=== PATIENT | male | born 1945 | race Caucasian/White ===

== ENCOUNTER 2017-09-28 03:25 | Emergency (ER) | payer OTHER ==
[~2017-09-28] VITALS: Ht 182.9 cm; Wt 104.2 kg
[2017-09-28 03:39] VITALS: BP 179/91; PULSE 82; RESP 18; TEMP 98.4; O2SAT 100
[2017-09-28] MEDS ORDERED: LISI20TA PO (03:39)
[2017-09-28] MEDS ORDERED: LATA0.002 EACH EYE (03:39)
[2017-09-28] MEDS ORDERED: ASPI-516 CHEW (03:39)
[2017-09-28 03:40] VITALS: RESP 18; O2SAT 99
[2017-09-28] MEDS ORDERED: SODIUM CHLOR 0.9% 1000 ML INJ 1,000 ML IV SCH (03:45)
[2017-09-28] MEDS ORDERED: SODIUM CHLORIDE 0.9% FLUSH 10 ML FLUSH IV FLUSH PRN (03:45)
[2017-09-28] MEDS ORDERED: methylPREDNISolone SOD SUCC 125 MG/2 ML VIAL IV PUSH ONE (03:45)
[2017-09-28] MEDS ORDERED: diphenhydrAMINE HCL 50 MG/ML VIAL IVP ONE (03:45)
[2017-09-28] MEDS ORDERED: EPINEPHrine HCL (1:1000) 1 MG/ML VIAL IM ONE (03:45)
[2017-09-28] MEDS ORDERED: FAMOTIDINE 20 MG/2 ML VIAL IV PUSH ONE (03:45)
[2017-09-28 04:01] LABS: AUTOMATED NEUTROPHIL # 10.1 TH/MM3 (1.8-7.7); BASOPHIL # 0.2 TH/MM3 (0-0.2); BASOPHIL % 1.3 % (0.0-2.0); EOSINOPHIL # 0.3 TH/MM3 (0-0.4); EOSINOPHIL % 2.4 % (0.0-4.0); HEMATOCRIT 48.1 % (39.0-51.0); HEMOGLOBIN 16.4 GM/DL (13.0-17.0); LYMPH % 15.7 % (9.0-44.0); LYMPHOCYTE # 2.2 TH/MM3 (1.0-4.8); MEAN CELL VOLUME 96.7 FL (80.0-100.0); MEAN CORPUSCULAR HEMOGLOBIN 32.9 PG (27.0-34.0); MEAN PLATELET VOLUME 8.8 FL (7.0-11.0); MONO % 10.6 % (0.0-8.0); MONOCYTE # 1.5 TH/MM3 (0-0.9); PLATELET COUNT 157 TH/MM3 (150-450); RED BLOOD COUNT 4.97 MIL/MM3 (4.50-5.90); RED CELL DISTRIBUTION WIDTH 11.5 % (11.6-17.2); WHITE BLOOD COUNT 14.3 TH/MM3 (4.0-11.0)
[2017-09-28 04:09] LABS: BICARBONATE 26.6 MEQ/L (21.0-32.0); CALCIUM 9.3 MG/DL (8.5-10.1)
[2017-09-28 04:13] LABS: CREATININE 1.6 MG/DL (0.60-1.30)
[2017-09-28 04:35] VITALS: BP 166/66; PULSE 66; RESP 18; O2SAT 98
[2017-09-28] MEDS ORDERED: ZANT150T2 PO (04:40)
[2017-09-28] MEDS ORDERED: DIPH25TA2 PO (04:40)
[2017-09-28] MEDS ORDERED: PRED50 PO (04:40)
--- NOTE | 2017-09-28 04:42 | PD ---
HPI Chief Complaint: Allergic/Adverse Reaction Time Seen by Provider: 03:45 Travel History International Travel<30 days: No Contact w/Intl Traveler<30days: No Traveled to known affect area: No History of Present Illness HPI The patient is a 72-year-old male who noted tongue swelling starting at 11 PM tonight. When he reached the emergency department around 0330, the swelling was at its peak. He denies any throat swelling and denies any stridor or difficulty breathing. He is on lisinopril and has been on lisinopril for years. He denies any fever. [facility] Past Medical History Cardiovascular Problems: Yes Diminished Hearing: No Glaucoma: Yes Hypertension: Yes Tetanus Vaccination: Unknown Influenza Vaccination: No Past Surgical History Surgical History: No Previous Surgery Social History Alcohol Use: No Tobacco Use: No Substance Use: No Allergies-Medications (Allergen,Severity, Reaction): Coded Allergies: No Known Allergies (Verified Allergy, Unknown, 09/28/17) Reported Meds & Prescriptions Reported Meds & Active Scripts Active Reported Latanoprost Opth Drops (Latanoprost) 0.005% Drops 1 Drop EACH EYE HS Refrigerate until opened. Lisinopril-Hctz 20-12.5 Mg Tab 1 Tab PO DAILY Aspirin 81 Mg Chew 81 Mg CHEW DAILY Review of Systems Except as stated in HPI: all other systems reviewed are Neg Physical Exam Narrative GENERAL: The patient is alert, oriented 3 and slight apparent distress with his tongue swelling. His vital signs show blood pressure 179/91 but are otherwise normal. SKIN: Focused skin assessment warm/dry. HEAD: Atraumatic. Normocephalic. EYES: Pupils equal and round. No scleral icterus. No injection or drainage. ENT: No nasal bleeding or discharge. Mucous membranes pink and moist. The tongue is enlarged but does not affect his breathing/airway. NECK: Trachea midline. No JVD. There is no stridor present. CARDIOVASCULAR: Regular rate and rhythm. No murmur appreciated. RESPIRATORY: No accessory muscle use. Clear to auscultation. Breath sounds equal bilaterally. GASTROINTESTINAL: Abdomen soft, non-tender, nondistended. Hepatic and splenic margins not palpable. MUSCULOSKELETAL: No obvious deformities. No clubbing. No cyanosis. No edema. NEUROLOGICAL: Awake and alert. No obvious cranial nerve deficits. Motor grossly within normal limits. Normal speech. PSYCHIATRIC: Appropriate mood and affect; insight and judgment normal. Data Data Last Documented VS Vital Signs Date Time Temp Pulse Resp B/P (MAP) Pulse Ox O2 Delivery O2 Flow Rate FiO2 09/28/17 03:52 72 179/91 09/28/17 03:42 18 100 Room Air 09/28/17 03:39 98.4 Orders Orders Basic Metabolic Panel (Bmp) (09/28/17 03:45) Complete Blood Count With Diff (09/28/17 03:45) Ecg Monitoring (09/28/17 03:45) Iv Access Insert/Monitor (09/28/17 03:45) Oximetry (09/28/17 03:45) Diphenhydramine Inj (Benadryl Inj) (09/28/17 03:45) Methylprednisolone So Succ Inj (Solumedr (09/28/17 03:45) Famotidine Inj (Pepcid Inj) (09/28/17 03:45) Sodium Chlor 0.9% 1000 Ml Inj (Ns 1000 M (09/28/17 03:45) Sodium Chloride 0.9% Flush (Ns Flush) (09/28/17 03:45) Epinephrine (1:1000) Inj (Adrenalin (1:1 (09/28/17 03:45) Labs Laboratory Tests Test 09/28/17 03:40 White Blood Count 14.3 TH/MM3 Red Blood Count 4.97 MIL/MM3 Hemoglobin 16.4 GM/DL Hematocrit 48.1 % Mean Corpuscular Volume 96.7 FL Mean Corpuscular Hemoglobin 32.9 PG Mean Corpuscular Hemoglobin Concent 34.0 % Red Cell Distribution Width 11.5 % Platelet Count 157 TH/MM3 Mean Platelet Volume 8.8 FL Neutrophils (%) (Auto) 70.0 % Lymphocytes (%) (Auto) 15.7 % Monocytes (%) (Auto) 10.6 % Eosinophils (%) (Auto) 2.4 % Basophils (%) (Auto) 1.3 % Neutrophils # (Auto) 10.1 TH/MM3 Lymphocytes # (Auto) 2.2 TH/MM3 Monocytes # (Auto) 1.5 TH/MM3 Eosinophils # (Auto) 0.3 TH/MM3 Basophils # (Auto) 0.2 TH/MM3 CBC Comment DIFF FINAL Differential Comment Blood Urea Nitrogen 22 MG/DL Creatinine 1.60 MG/DL Random Glucose 129 MG/DL Calcium Level 9.3 MG/DL Sodium Level 138 MEQ/L Potassium Level 3.4 MEQ/L Chloride Level 104 MEQ/L Carbon Dioxide Level 26.6 MEQ/L Anion Gap 7 MEQ/L Estimat Glomerular Filtration Rate 43 ML/MIN MDM Medical Decision Making Medical Screen Exam Complete: Yes Emergency Medical Condition: Yes Medical Record Reviewed: Yes Differential Diagnosis Angioedema, pharyngitis, glossitis, tongue abscess Narrative Course The patient has angioedema. He will be given prednisone, Zantac and Benadryl. She will discontinue the lisinopril. He needs to follow-up with his primary care physician next week. Diagnosis Primary Impression: Angioedema Additional Instructions: The Benadryl is one every 6 hours but you can taper off to one every 8 hours and ultimately one every 12 hours. The Zantac is one every 12 hours. The prednisone is one tablet daily for 5 days. Follow-up next week with your primary care physician. As we discussed, return to emergency department immediately if your tongue starts increasing swelling. Med/Other Pt SpecificInfo: Prescription(s) given Scripts Diphenhydramine (Diphenhydramine) 25 Mg Tab 25 MG PO Q6H Y for ALLERGIES, #60 TAB 0 Refills Prov: Galileo Maguire MD 09/28/17 Ranitidine (Zantac) 150 Mg Tab 150 MG PO BID for Reduce Stomach Acid, #30 TAB 0 Refills Prov: Galileo Maguire MD 09/28/17 Prednisone (Prednisone) 50 Mg Tab 50 MG PO DAILY for 5 Days, #5 TAB 0 Refills Prov: Galileo Maguire MD 09/28/17 Disposition: 01 DISCHARGE HOME Condition: Stable Galileo Maguire MD Sep 28, 2017 04:42
== END 2017-09-28 05:04 | disposition home or self-care (01) ==
LOC: PHED 03:25
DX: T78.3XXA Angioneurotic edema, initial encounter (principal); H40.9 Unspecified glaucoma; I10 Essential (primary) hypertension
CPT/HCPCS: 80048; 85025; 96372; 96374; 96375; 99284; J0171; J1200; J2930; J7030

== ENCOUNTER 2018-08-21 01:47 | Inpatient (IN) ==
[2018-08-21] MEDS ORDERED: Dexamethasone Inj 20 MG/5 ML Vial IV.PUSH ONE (01:55)
--- NOTE | 2018-08-21 02:06 | ED ---
HPI General Chief complaint: Allergic Reaction Stated complaint: swollen tongue at midnight Time Seen by Provider: 08/21/18 01:54 History of Present Illness HPI narrative: pt has tongue swelling since midnight 2 hrs prior to presentation to the ER and pt had similiar episode in 10/03 with resolution for symptoms with MEdication , ( was not intubated ) pt had been on lisinopril at that time . In july he had medical procedure with IV med that led to lip tingling and was started on benadryl and prednisone , tonight can not identify cause of tongue swelling, has hot potatoe tlike voice and lips appear normal , no stridor , no wheeze. pt seems very unphased by his tongue swelling , He came right to ER , he did not take anything for the swelling prior to arrival Related Data Home Medications Medication Instructions Recorded Confirmed aspirin [Aspirin Low Dose] 81 mg PO DAILY 08/21/18 08/21/18 bisoprolol-hydrochlorothiazide 1 tab PO DAILY 08/21/18 08/21/18 docosahexanoic acid-epa [Fish Oil] 1 cap PO DAILY 08/21/18 08/21/18 garlic 1,000 mg PO DAILY 08/21/18 08/21/18 multivitamin 1 tab PO DAILY 08/21/18 08/21/18 Allergies Allergy/AdvReac Type Severity Reaction Status Date / Time lisinopril Allergy Swelling Verified 08/21/18 02:06 of Lip/Tongue/Throat trazodone Allergy Swelling Verified 08/21/18 02:06 of Lip/Tongue/Throat Review of Systems ROS: all other systems reviewed are negative [facility] Social History Social History Substance History: No History of Abuse Second Hand Smoke Exposure: No Smoking Status: Never smoker How Often Do You Have a Drink Containing Alcohol: Monthly or less Recent Travel in [facility] within the Last 8 Weeks: No Recent Out of Country Travel within the Last 8 Weeks: No Exam Narrative Exam Narrative: GENERAL: talking with hot potatoe voice from swollen tongue ( reveiwed his chart found prior visits for the same , and symptoms reversed with meds) SKIN: Warm and dry. HEAD: Atraumatic. Normocephalic. EYES: Pupils equal and round. No scleral icterus. No injection or drainage. ENT: bilateral symmetrically swollen tongue . NECK: Trachea midline. No JVD. CARDIOVASCULAR: Regular rate and rhythm. RESPIRATORY: No accessory muscle use. Clear to auscultation. Breath sounds equal bilaterally. GASTROINTESTINAL: Abdomen soft, non-tender, nondistended. Hepatic and splenic margins not palpable. MUSCULOSKELETAL: Extremities without clubbing, cyanosis, or edema. No obvious deformities. NEUROLOGICAL: Awake and alert. No obvious cranial nerve deficits. Motor grossly within normal limits. Five out of 5 muscle strength in the arms and legs. Normal speech. PSYCHIATRIC: Appropriate mood and affect; insight and judgment normal. Course Initial Documented Vital Signs Pulse Rate 74 08/21/18 02:00 Pulse Oximetry 98 08/21/18 02:00 Last Documented Vital Signs Temperature 97.8 F 08/21/18 02:06 Pulse Rate 81 08/21/18 06:02 Respiratory Rate 18 08/21/18 06:02 Blood Pressure 226/88 H 08/21/18 06:02 Pulse Oximetry 97 08/21/18 06:02 Critical Care Time Critical Care Time: Yes Total Critical Care Time: 30 Attestation: Vision comes in severe tongue swelling I immediately ordered Decadron Benadryl Pepcid DuoNeb's and epi epinephrine 1 and 1000 0.3 mL's subcu IM. Patient's chart is reviewed and he says he was here in September had similar was able to be reversed with medications and did not need to be intubated. Therefore I gave him time with the medication to reverse which it does after about an hour his tongue is decreased and he is safe to be admitted to ICU with close observation Medical Decision Making MDM Narrative Medical decision making narrative: Decadron 10 IV Benadryl 50 IV Pepcid 20 IV and 0.3 mg of epinephrine 1 and 1000 is given immediately and he is observed closely Atrovent Prashanth observation and then it safe to admit after he is 4 hours observed in the ER admit to the ICU Dr. Keenan accepts placed in the ICU Medical Screen Exam Complete: Yes Emergency Medical Condition: Yes Differential Diagnosis Differential Diagnosis: Differential diagnosis is tongue swelling due to allergic reaction versus tongue swelling due to angioedema of see complement deficiency versus angioedema to a medication versus idiopathic angioedema versus other Lab Data Result diagrams: 08/21/18 05:36 08/21/18 05:36 Lab Results 08/21/18 08/21/18 08/21/18 Range/Units 05:36 05:36 05:36 CBC w Diff Auto diff final WBC 10.6 (4.0-11.0) th/mm3 RBC 4.91 (4.50-5.90) mil/mm3 Hgb 16.5 (13.0-17.0) gm/dL Hct 47.1 (39.0-51.0) % MCV 95.9 (80.0-100.0) fL MCH 33.6 (27.0-34.0) pg MCHC 35.1 (32.0-36.0) % RDW 11.4 L (11.6-17.2) % Plt Count 172 (150-450) th/mm3 MPV 8.7 (7.0-11.0) fL Neut % (Auto) 91.0 H (16.0-70.0) % Lymph % (Auto) 7.1 L (9.0-44.0) % Burnet % (Auto) 0.8 (0.0-8.0) % Eos % (Auto) 0.1 (0.0-4.0) % Baso % (Auto) 1.0 (0.0-2.0) % Neut # (Auto) 9.7 H (1.8-7.7) th/mm3 Lymph # (Auto) 0.7 L (1.0-4.8) th/mm3 Burnet # (Auto) 0.1 (0.0-0.9) th/mm3 Eos # (Auto) 0.0 (0.0-0.4) th/mm3 Baso # (Auto) 0.1 (0.0-0.2) th/mm3 WBC Differential . Differential Comment . PT 10.4 (9.8-11.6) sec INR 1.0 Ratio APTT 27.1 (23.4-31.7) sec Fibrinogen 268 (227-377) mg/dL Sodium 142 (136-145) meq/L Potassium 4.0 (3.5-5.1) meq/L Chloride 110 H (98-107) meq/L Carbon Dioxide 21.9 (21.0-32.0) meq/L Anion Gap 10 (5-15) meq/L BUN 18 (7-18) mg/dL Creatinine 1.40 H (0.60-1.30) mg/dL Estimated GFR 50 L (>89) mL/min Random Glucose 176 H (74-106) mg/dL Lactic Acid (0.4-2.0) mmol/L Calcium 8.8 (8.5-10.1) mg/dL Phosphorus 1.2 L (2.5-4.9) mg/dL Magnesium 2.2 (1.5-2.5) mg/dL Total Creatine Kinase 187 (39-308) U/L Lipase 176 (73-393) U/L TSH 1.920 (0.358-3.740) uIU/mL 08/21/18 Range/Units 05:36 CBC w Diff WBC (4.0-11.0) th/mm3 RBC (4.50-5.90) mil/mm3 Hgb (13.0-17.0) gm/dL Hct (39.0-51.0) % MCV (80.0-100.0) fL MCH (27.0-34.0) pg MCHC (32.0-36.0) % RDW (11.6-17.2) % Plt Count (150-450) th/mm3 MPV (7.0-11.0) fL Neut % (Auto) (16.0-70.0) % Lymph % (Auto) (9.0-44.0) % Burnet % (Auto) (0.0-8.0) % Eos % (Auto) (0.0-4.0) % Baso % (Auto) (0.0-2.0) % Neut # (Auto) (1.8-7.7) th/mm3 Lymph # (Auto) (1.0-4.8) th/mm3 Burnet # (Auto) (0.0-0.9) th/mm3 Eos # (Auto) (0.0-0.4) th/mm3 Baso # (Auto) (0.0-0.2) th/mm3 WBC Differential Differential Comment PT (9.8-11.6) sec INR Ratio APTT (23.4-31.7) sec Fibrinogen (227-377) mg/dL Sodium (136-145) meq/L Potassium (3.5-5.1) meq/L Chloride (98-107) meq/L Carbon Dioxide (21.0-32.0) meq/L Anion Gap (5-15) meq/L BUN (7-18) mg/dL Creatinine (0.60-1.30) mg/dL Estimated GFR (>89) mL/min Random Glucose (74-106) mg/dL Lactic Acid 2.8 H (0.4-2.0) mmol/L Calcium (8.5-10.1) mg/dL Phosphorus (2.5-4.9) mg/dL Magnesium (1.5-2.5) mg/dL Total Creatine Kinase (39-308) U/L Lipase (73-393) U/L TSH (0.358-3.740) uIU/mL Discharge Plan Discharge Disposition Patient Disposition: ED Admit(ED Internal Use Only) Discharge Order Discharge Orders: ED Use Only Admit Order (Routine); Ordered 08/21/18 Ordered By: Fly Reeves Physicians Team ED Provider: Fly Reeves Primary Care Provider: Mannie Cade Attending Provider: Rafael Schultz Other Providers: Marilyn Ruff Status ED Status: Admitted Patient
[2018-08-21] MEDS ORDERED: Famotidine PF Inj 20 MG/2 ML Vial IV.PUSH ONE (02:10)
[2018-08-21] MEDS ORDERED: hydrALAZINE HCl Inj 20 MG/ML Vial IV.PUSH ONE ×2 (02:46→04:49)
[2018-08-21] MEDS ORDERED: Bisacodyl 10 MG Supp RECTAL PRN (05:07)
[2018-08-21] MEDS ORDERED: Acetaminophen 325 MG Tablet PO PRN (05:07)
[2018-08-21] MEDS ORDERED: hydrALAZINE HCl Inj 20 MG/ML Vial IV.PUSH PRN (05:13)
[2018-08-21] MEDS ORDERED: niCARdipine Inj 25 MG in Sodium Chlor 0.9% Inj 250 ML IV.CONT PRN (05:13)
[2018-08-21] MEDS ORDERED: Sod Chloride 0.9% Inj 1,000 ML IV.CONT SCH (05:15)
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
[2018-08-21 05:52] LABS: Baso # (Auto) 0.1 th/mm3 (0.0-0.2); Eos % (Auto) 0.1 % (0.0-4.0); Hematocrit 47.1 % (39.0-51.0); Hemoglobin 16.5 gm/dL (13.0-17.0); Lymph # (Auto) 0.7 th/mm3 (1.0-4.8); Lymph % (Auto) 7.1 % (9.0-44.0); Mean Corpuscular HGB Conc 35.1 % (32.0-36.0); Mean Corpuscular Hemoglobin 33.6 pg (27.0-34.0); Mean Corpuscular Volume 95.9 fL (80.0-100.0); Mean Platelet Volume 8.7 fL (7.0-11.0); Mono # (Auto) 0.1 th/mm3 (0.0-0.9); Mono % (Auto) 0.8 % (0.0-8.0); Neut # (Auto) 9.7 th/mm3 (1.8-7.7); Platelet Count 172 th/mm3 (150-450); Red Blood Count 4.91 mil/mm3 (4.50-5.90); Red Cell Distribution Width 11.4 % (11.6-17.2); White Blood Count 10.6 th/mm3 (4.0-11.0)
[2018-08-21] MEDS: Heparin - SQ 10,000 UNITS/ML Vial SQ SCH ×2 (05:59→18:07)
[2018-08-21 06:02] LABS: Activated Partial Thrombo Time 27.1 sec (23.4-31.7); Calcium 8.8 mg/dL (8.5-10.1); Carbon Dioxide 21.9 meq/L (21.0-32.0); Magnesium 2.2 mg/dL (1.5-2.5); Prothrombin Time 10.4 sec (9.8-11.6)
[2018-08-21 06:05] LABS: Phosphorus 1.2 mg/dL (2.5-4.9)
[2018-08-21 06:16] LABS: Thyroid Stimulating Hormone 1.92 uIU/mL (0.358-3.740)
[2018-08-21] MEDS: hydrALAZINE 50 MG Tablet PO SCH ×3 (06:25→23:24)
[2018-08-21] MEDS: Famotidine PF Inj 20 MG/2 ML Vial IV.PUSH SCH ×2 (09:43→20:42)
[2018-08-21] MEDS: Senna/Docusate Sodium 8.6/50 MG Tablet PO SCH ×2 (09:44→20:42)
[2018-08-21 20:53] VITALS: O2SAT 98
[2018-08-21] MEDS ORDERED: Latanoprost 0.005% Opth Drops 2.5 ML Bottle EACH EYE SCH (21:00)
[2018-08-21] MEDS ORDERED: Potassium Phosphate 500 MG Soluble Tablet PO ONE (21:00)
[2018-08-22 01:31] VITALS: TEMP 98
[2018-08-22] MEDS ORDERED: Chlorhexidine Gluconate 2% 1 Pack (2 Cloths) TOPICAL PRN (04:00)
[2018-08-22] MEDS ORDERED: Chlorhexidine Gluconate 2% 1 Pack (2 Cloths) TOPICAL SCH (04:00)
[2018-08-22 05:55] LABS: Baso # (Auto) 0.1 th/mm3 (0.0-0.2); Baso % (Auto) 0.4 % (0.0-2.0); Hematocrit 39.6 % (39.0-51.0); Hemoglobin 13.9 gm/dL (13.0-17.0); Lymph # (Auto) 1.5 th/mm3 (1.0-4.8); Mean Corpuscular HGB Conc 35.3 % (32.0-36.0); Mean Corpuscular Hemoglobin 34.3 pg (27.0-34.0); Mean Corpuscular Volume 97.1 fL (80.0-100.0); Mean Platelet Volume 9.3 fL (7.0-11.0); Mono # (Auto) 1.2 th/mm3 (0.0-0.9); Mono % (Auto) 6.6 % (0.0-8.0); Neut # (Auto) 16.1 th/mm3 (1.8-7.7); Platelet Count 152 th/mm3 (150-450); Red Blood Count 4.07 mil/mm3 (4.50-5.90); Red Cell Distribution Width 11.8 % (11.6-17.2); White Blood Count 18.9 th/mm3 (4.0-11.0)
[2018-08-22 06:05] LABS: Chloride 107 meq/L (98-107); Sodium 140 meq/L (136-145)
[2018-08-22] MEDS: Heparin - SQ 10,000 UNITS/ML Vial SQ SCH (06:06)
[2018-08-22 06:10] LABS: Calcium 8.4 mg/dL (8.5-10.1)
[2018-08-22 06:11] LABS: Albumin 3.4 g/dL (3.4-5.0); Anion Gap 10 meq/L (5-15); Carbon Dioxide 23.5 meq/L (21.0-32.0); Glucose,Random 129 mg/dL (74-106); Magnesium 2.3 mg/dL (1.5-2.5)
[2018-08-22] MEDS: hydrALAZINE 50 MG Tablet PO SCH (06:30)
[2018-08-22 06:33] LABS: Alanine Aminotransferase 29 U/L (12-78); Alkaline Phosphatase 48 U/L (45-117); Aspartate Aminotransferase 19 U/L (15-37); Blood Urea Nitrogen 30 mg/dL (7-18); Glomerular Filtration Rate 29 mL/min (>89); Phosphorus 3.7 mg/dL (2.5-4.9); Total Protein 6.8 g/dL (6.4-8.2)
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
[2018-08-22 08:18] VITALS: BP 140/74; PULSE 82; RESP 22
[2018-08-22] MEDS ORDERED: Famotidine PF Inj 20 MG/2 ML Vial IV.PUSH SCH (09:00)
== END 2018-08-22 08:00 | disposition home or self-care (01) ==
LOC: PHED 01:47 → PHEDA 05:06 → PHICU 06:45
PROVIDERS: ADMIT Internal Medicine; ATTEND Internal Medicine